=== PATIENT | male | born 1960 | race African-American/Black ===

== ENCOUNTER 2019-07-25 07:06 | Emergency (ER) | payer OTHER ==
[~2019-07-25] VITALS: Ht 172.7 cm; Wt 90.7 kg
[2019-07-25 07:40] LABS: URINE BILIRUBIN NEGATIVE (Negative); URINE BLOOD NEGATIVE (Negative); URINE CLARITY CLEAR; URINE COLOR YELLOW; URINE GLUCOSE-RANDOM 3+ (Negative); URINE KETONES NEGATIVE (Negative); URINE LEUKOCYTES-REFLEX NEGATIVE (Negative); URINE NITRITE-REFLEX NEGATIVE (Negative); URINE PROTEIN NEGATIVE (Negative)
[2019-07-25 08:10] LABS: CALCIUM 8.6 mg/dL (8.5-10.1); POTASSIUM 4.1 mmol/L (3.5-5.1)
[2019-07-25] MEDS ORDERED: METFORMIN HCL500 MG PO (08:14)
[2019-07-25 08:23] VITALS: BP 135/64
== END 2019-07-25 08:24 | disposition home or self-care (01) ==
LOC: M.ERS 07:06
PROVIDERS: Emergency Medicine Emergency Medical Services
DX: E11.9 Type 2 diabetes mellitus without complications (principal); Z76.0 Encounter for issue of repeat prescription